=== PATIENT | female | born 1995 | race Hispanic/Latino ===

== ENCOUNTER 2018-04-03 18:54 | Emergency (ER) | payer OTHER ==
[2018-04-03] MEDS ORDERED: NA CHLORIDE 0.9% 2,000 ML ONE (19:17)
[2018-04-03] MEDS ORDERED: TETANUS & DIPHTHERIA TOX,ADULT 0.5 ML VIAL ONE (19:17)
[2018-04-03 19:29] LABS: Absolute Lymphocytes (CBC) 2.9 K/uL (0.7-4.9); Absolute Monocytes 0.5 K/uL (0.1-1.3); Absolute Neutrophil 6.3 K/uL (1.8-8.0); Basophils % 0.4 % (0-1.3); Eosinophils % 0.5 % (0-4.4); Hematocrit 42.9 % (36.0-45.0); Lymphocytes % 29.8 % (15.3-44.8); MCV 91.8 fL (80-100); MPV 9.3 fL (7.6-11.3); Monocytes % 5.5 % (3.3-12.3); RBC Red Blood Cell Count 4.68 M/uL (3.86-4.86)
[2018-04-03 19:41] LABS: Protime INR 0.99
[2018-04-03 19:47] LABS: Bicarbonate 25 mEq/L (21-31); Glucose Level 108 mg/dL (65-120); Potassium 3.6 mEq/L (3.6-5.0); Sodium Level 142 mEq/L (135-145)
[2018-04-03 19:48] LABS: BUN Blood Urea Nitrogen 9 mg/dL (6-20)
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
[2018-04-03 20:32] LABS: Urine Blood TRACE (NEG); Urine Glucose NEGATIVE (NEG); Urine Protein NEGATIVE (NEG); Urine pH 6.5 (5.0-7.0)
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
== END 2018-04-03 20:51 | disposition home or self-care (01) ==
LOC: ER 18:54
DX: R10.9 Unspecified abdominal pain (principal); V49.49XA Driver injured in collision with other motor vehicles in traffic accident, initial encounter; Z23 Encounter for immunization; Z72.0 Tobacco use
CPT/HCPCS: 36415; 70450; 71260; 72125; 74177; 80048; 81003; 81025; 85025; 85610; 85730; 86850; 86900; 86901; 90714; 96360; 99284; J7030; Q9967